=== PATIENT | male | born 1945 | race Caucasian/White ===

== ENCOUNTER 2018-12-31 08:36 | Day surgery (SDC) | payer OTHER ==
[~2018-12-31] VITALS: Ht 180.3 cm; Wt 86.2 kg
[~2018-12-31 08:36] MED LIST: ASPI81TA85 PO; ATOR1TAB21 PO; FISH1000 PO; MULTCAP PO; NS 1,000 ML IV ONE; PROPOFOL 200 MG/20 ML VIAL As Ordered ONE
--- NOTE | 2018-12-31 10:09 | ROOR ---
Patient Name: Tomy Lee Procedure Date: 12/31/2018 9:48 AM Date of : 1945 Age: 73 Room: [facility] Gender: Male Note Status: Finalized Procedure: Colonoscopy Indications: High risk colon cancer surveillance: Personal history of colonic polyps, Family history of colon cancer in a first-degree relative Providers: Parker GAMA MD Referring MD: Khadar Rodríguez DO Requesting Provider: Medicines: Monitored Anesthesia Care Complications: No immediate complications. Procedure: Pre-Anesthesia Assessment: - The heart rate, respiratory rate, oxygen saturations, blood pressure, adequacy of pulmonary ventilation, and response to care were monitored throughout the procedure. The Colonoscope was introduced through the anus and advanced to the cecum, identified by appendiceal orifice and ileocecal valve. The colonoscopy was performed without difficulty. The patient tolerated the procedure well. The quality of the bowel preparation was good. Findings: The perianal and digital rectal examinations were normal. Mild sigmoid diverticulosis and small internal hemorrhoids. The entire examined colon appeared normal on direct and retroflexion views. Impression: - Mild sigmoid diverticulosis and small internal hemorrhoids. - The entire colon is normal on direct and retroflexion views. - No specimens collected. Recommendation: - Repeat colonoscopy in 5 years for screening purposes. Parker Gama MD Parker GAMA MD 12/31/2018 10:09:04 AM Electronically signed by Parker GAMA MD Number of Addenda: 0 Note Initiated On: 12/31/2018 9:48 AM Estimated Blood Loss: Estimated blood loss: none.
[2018-12-31 10:25] VITALS: BP 130/76
== END 2018-12-31 10:35 | disposition home or self-care (01) ==
LOC: M OPP 08:36
PROVIDERS: ATTEND Internal Medicine Gastroenterology
DX: Z12.11 Encounter for screening for malignant neoplasm of colon (principal); Z86.010 Personal history of colon polyps; K57.30 Diverticulosis of large intestine without perforation or abscess without bleeding; K64.8 Other hemorrhoids; Z79.82 Long term (current) use of aspirin; Z79.899 Other long term (current) drug therapy; Z88.5 Allergy status to narcotic agent